=== PATIENT | female | born 1990 | race Caucasian/White ===

== ENCOUNTER 2018-10-16 17:19 | Emergency (ER) | payer OTHER ==
[2018-10-16] MEDS: ACETAMINOPHEN 325 MG TAB PO (18:10)
== END 2018-10-16 18:52 | disposition home or self-care (01) ==
LOC: FTE 17:19
DX: H61.22 Impacted cerumen, left ear (principal)
CPT/HCPCS: 69209; 99283-25

== ENCOUNTER 2019-02-03 18:13 | Emergency (ER) | payer OTHER | END 2019-02-04 03:15 | disposition home or self-care (01) | LOC: FTE 18:13 | DX: H61.22 Impacted cerumen, left ear (principal) | CPT/HCPCS: 69209; 99283-25 ==